=== PATIENT | male | born 1965 | race Caucasian/White ===

== ENCOUNTER 2019-04-22 10:48 | Emergency (ER) | payer OTHER ==
[~2019-04-22] VITALS: Ht 157.5 cm; Wt 80.5 kg
[~2019-04-22 10:48] MED LIST: ALLO100T PO; ASPI-817 PO; BENA1TAB3 PO; BENA40TA56 PO; CARV6.2579 PO; COLC0.6T49 PO; COLC0.6T6 PO; DOXA4TAB3 PO; FURO20TA3 PO; MINO2.5T16 PO; POLY17PO6 PO; POTA8CAP PO
[2019-04-22 10:58] VITALS: Ht 157.5 cm; Wt 80.5 kg
[2019-04-22 15:02] VITALS: BP 176/112; PULSE 60; RESP 18
== END 2019-04-22 15:10 | disposition home or self-care (01) ==
LOC: E/R 10:48
DX: N39.9 Disorder of urinary system, unspecified (principal); I10 Essential (primary) hypertension; K59.00 Constipation, unspecified; Z79.82 Long term (current) use of aspirin
CPT/HCPCS: 74018; 80048; 81001; 85025; Z7502